=== PATIENT | female | born 1995 | race Caucasian/White ===

== ENCOUNTER → 2022-09-27 | Outpatient (CLI) | payer MEDICAID, SELFPAY ==
[2022-09-27 12:47] LABS: Platelet Count 355 K/mm3 (150-450); RET-HE 33.7 pg (30-35); Reticulocyte Count 1.09 % (0.5-1.5)
[2022-09-27 13:09] LABS: CRP < 2.90 mg/L (0.0-3.0); Ferritin 7 ng/mL (8-252); Iron 119 ug/dL (50-170); Iron Binding Capacity,Total 491 ug/dL (250-450); LDH 133 U/L (84-246); PERCENT IRON SATURATION 24.2 % (15.0-55.0)
[2022-09-27 13:16] LABS: Erythrocyte Sedimentation Rate 29 mm/hr (0-30)
[2022-09-28 13:07] LABS: Anti-Centromere B Ab <0.2 AI (0.0-0.9); Anti-Chromatin <0.2 AI (0.0-0.9); Anti-Jo <0.2 AI (0.0-0.9); Anti-Scleroderma-70 AB <0.2 AI (0.0-0.9); RNP Ab 0.2 AI (0.0-0.9); SJOGREN'S Anti-SS-A test < 0.2 AI (0.0-0.9); SJOGREN'S Anti-SS-B test < 0.2 AI (0.0-0.9); Smith Ab <0.2 AI (0.0-0.9)
[2022-09-28 15:08] LABS: Endomysial Antibody IgA Negative (Negative)
[2022-09-29 10:18] LABS: Anti-dsDNA Ab <1 IU/mL (0-9)
[2022-09-29 10:47] LABS: Immunoglobulin A 157 mg/dL (87-352); t-Transglutaminase IgA <2 U/mL (0-3)
[2022-10-01 00:06] LABS: Cytoplasmic Ab (C-ANCA) <1:20 titer (Neg:<1:20); Immunoglobulin A 145 mg/dL (87-352); Immunoglobulin E 186 IU/mL (6-495); Immunoglobulin G 1358 mg/dL (586-1602)
[2022-10-01 13:46] LABS: Immunoglobulin M 129 mg/dL (26-217); Perinuclear Ab (P-ANCA) <1:20 titer (Neg:<1:20)
== END | disposition home or self-care (01) ==
PROVIDERS: PCP Family Medicine; Referring Provider Internal Medicine Gastroenterology; Visit Provider Internal Medicine Gastroenterology
DX: D64.9 Anemia, unspecified (principal)
CPT/HCPCS: 36415; 82728; 82784; 82785; 83516; 83540; 83550; 83615; 85045; 85652; 86140; 86225; 86235; 86255; 86256

== ENCOUNTER 2023-01-10 05:52 | Day surgery (SDC) | payer MEDICAID, SELFPAY ==
[2023-01-10] MEDS: Lactated Ringers 1,000 ML 15 ML IV (06:36)
[2023-01-10 06:37] VITALS: BP 127/77; PULSE 93; RESP 18; TEMP 37; O2SAT 100; BMI 20.5
--- NOTE | 2023-01-10 06:49 | PCM.HP.BLA ---
History and Physical Date of Admission: 01/10/23 26 F who presents to the office today for initial consult. Pinky established with this clinic 09.27.22 with referral from PCP. Presented to [facility] ED with diarrhea and abdominal pain/cramping. Biochemical workup, stool testing and imaging performed and she was discharged with Augmentin for UTI and proctocolitis. ? Biochemical workup CBC (RBC L3.87), CMP, lactate, lipase, HcG without pertinent abnormality. Stool testing C.Difficile WNL ?CT abd/pel 06.10.22 noting moderate sigmoid/rectal wall thickening; slight left urothelial thickening, UTI; prominent uterine fundus, pelvic US. ? Pt feeling okay after ED visit. No other episodes of diarrhea or blood in stool. Does not have any abdominal pain, gas or bloating. Bowel movements are usually normal. Sometimes gets diarrhea if stressed. Reports having alot of constipation when she was younger. Having to get enemas on a regular basis. Has a history of anemia with previous iron infusions. No determined cause. 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 ? ? ROS Const Constitutional: No fatigue ENT ENT: No difficulty swallowing Gastro GI: Positive for abdominal pain, constipation and diarrhea; No belching, bloating, change in bowel habits, change in stool character, coffee ground emesis, cramping, heartburn, difficulty swallowing, feeling full early, excessive flatus, incontinent of stools, Vomiting blood/hematemesis, Blood in stool, loose stools, Black,tarry stools, nausea/dyspepsia, pain with swallowing, vomiting or other Musc Musculoskeletal: No joint pain Skin Skin: No yellowing of the eye or itchy eyes Psych Psychiatric: Positive for anxiety, Positive for depression and Positive for paranoia Endo Endocrine: No fatigue Aller/Imm Allergy/Immunologic: No itchy eyes Robert/Lymp Hematologic/Lymphatic: No easy bleeding or easy bruising Exam Const General: cooperative and comfortable Nutritional Appearance: average body habitus and well nourished [facility] Head: normal to inspection Ears: hearing grossly normal bilaterally Nose: external nose normal Face and sinus: normal facial exam Mouth: oral mucosae normal Throat: posterior oropharynx normal Eyes General: appearance normal, both eyes and all related structures Neck Neck: normal visual inspection Chest Chest palpation & inspection: normal inspection of the chest and normal palpation of entire chest wall Resp Effort & Inspection: normal respiratory effort Auscultation: Bilateral: Clear to Auscultation Cardio Palpation: normal PMI Rate: regular rate Rhythm: regular rhythm GI Inspection: normal to inspection Auscultation: normal bowel sounds Percussion: normal to percussion Palpation: no hepatosplenomegaly Skin General: no rashes or lesions noted Neuro General: patient alert Extrem General: normal to inspection Psych Affect: normal affect Quality Reporting Tobacco Screening ([facility]) Smoking Status: Never smoker Assessment and Plan Assessment and Plan (1) Anemia: ?Status:?Acute ?Plan: Differential diagnosis: Iron deficiency anemia celiac disease, metromenorrhagia, less likely autoimmune hemolysis, IgA deficient.? We will repeat her iron studies along with LDH, ferritin, TIBC, reticulocyte count.? We will also perform an MARLYS comprehensive profile, ANCA profile and serum immunoglobulins.? We will also do please celiac disease profile. ? ? ? Orders: Orders CRP Today D64.9 - Anemia, unspecified ? Ferritin Today D64.9 - Anemia, unspecified ? Iron+Iron Binding Capacity Today D64.9 - Anemia, unspecified ? LDH Today D64.9 - Anemia, unspecified ? Retic Panel Count Today D64.9 - Anemia, unspecified ? Erythrocyte Sed Rate Today D64.9 - Anemia, unspecified ? MARLYS Comprehensive Panel Today D64.9 - Anemia, unspecified ? ANCA Today D64.9 - Anemia, unspecified ? Celiac Disease Profile Today D64.9 - Anemia, unspecified ? Immunoglobulin A Today D64.9 - Anemia, unspecified ? Immunoglobulin E Today D64.9 - Anemia, unspecified ? Immunoglobulin G Today D64.9 - Anemia, unspecified ? Immunoglobulin M Today D64.9 - Anemia, unspecified ? I have examined the patient and the H&P has been reviewed. There are no clinical changes since date of exam.
[2023-01-10 06:51] LABS: Internal QC Validated? YES +Cl - CLEAR BKGD; Pregnancy, Serum, hCG Quali. NEGATIVE Negative
--- NOTE | 2023-01-10 07:00 | COLBX_PTH ---
PATIENT: NORA MIGUEL LOC: EN U#:[id number] AGE/SX: 27/F ROOM: RE01/10/[address]: Dr. Yogesh Rodriguez DO : 1995 BED: DIS: 01/10/2023 SPEC #: [id number] RECD: 01/10/23 09:21 STATUS: JAMEL REJose #: [id number] CHELSI: 01/10/23 07:[address]: Yogesh Rodriguez DEPT: SURGICAL PATHOLOGY RECD BY: Dinesh Jaimes ENTERED: 01/10/23 11:32 SP TYPE: COLON BX WOODY DR: Dr. Harjit Carmona MD Tissues: A - Duodenum, NOS B - Ileum, NOS C - Rectum, NOS Procedures: Surgery Specimen Level IV HEADER OPERATION: Colonoscopy, EGD ([facility] [place]), biopsy PRE-OP DIAGNOSIS: Anemia TISSUE SUBMITTED: A ? Duodenal biopsy, B ? Terminal ileum biopsy, C ? Rectal biopsy MICROSCOPIC DIAGNOSIS A. Duodenum, biopsy: Mild nonspecific chronic inflammation. B. Terminal ileum, biopsy: No pathologic change. See comment. C. Rectum, biopsy: No pathologic change. AM:stef 01/11/2023 COMMENT B. Benign appearing lymphoid aggregates are present. MICROSCOPIC DESCRIPTION Slides are reviewed. GROSS DESCRIPTION A - Received in fixative is one container labeled with the patient's name and designated duodenal biopsy. The specimen consists of multiple irregular fragments of light arboleda soft tissue that in aggregate measure 1.0 x 0.5 x 0.1 cm. The specimen is totally submitted in one cassette. B - Received in fixative is one container labeled with the patient's name and designated terminal ileum biopsy. The specimen consists of two irregular fragments of light arboleda soft tissue that in aggregate measure 0.5 x 0.5 x 0.1 cm. The specimen is totally submitted in one cassette. C - Received in fixative is one container labeled with the patient's name and designated rectal biopsy. The specimen consists of multiple irregular fragments of light arboleda soft tissue that in aggregate measure 1.0 x 0.5 x 0.1 cm. The specimen is totally submitted in one cassette. / AM:stef 01/10/2023 TC:5 CPT: 37808 x3
[2023-01-10 07:35] VITALS: BP 115/71; BP 127/77; PULSE 73; RESP 16; TEMP 37; O2SAT 100
--- NOTE | 2023-01-10 07:39 | OP.EGD_ITS ---
Patient Name: Pinky Bejarano Procedure Date: 01/10/2023 6:54 AM Date of : 1995 Age: 27 Procedure: Upper GI endoscopy Indications: Iron deficiency anemia Providers: Yogesh Rodriguez DO Referring MD: Yogesh Rodriguez DO Medicines: Monitored Anesthesia Care Patient Profile: This is a 27 year old female. Refer to note in patient chart for documentation of history and physical. Patient has symptoms of chronic abdominal cramping and chronic nausea. Complications: No immediate complications. Procedure: Pre-Anesthesia Assessment: - Prior to the procedure, a History and Physical was performed, and patient medications and allergies were reviewed. The risks and benefits of the procedure and the sedation options and risks were discussed with the patient. All questions were answered and informed consent was obtained. Patient identification and proposed procedure were verified in the pre-procedure area. Mental Status Examination: normal. Airway Examination: normal oropharyngeal airway and neck mobility. Respiratory Examination: clear to auscultation. Prophylactic Antibiotics: The patient does not require prophylactic antibiotics. Prior Anticoagulants: The patient has taken no previous anticoagulant or antiplatelet agents. After reviewing the risks and benefits, the patient was deemed in satisfactory condition to undergo the procedure. The anesthesia plan was to use monitored anesthesia care (MAC). Immediately prior to administration of medications, the patient was re-assessed for adequacy to receive sedatives. The heart rate, respiratory rate, oxygen saturations, blood pressure, adequacy of pulmonary ventilation, and response to care were monitored throughout the procedure. The physical status of the patient was re-assessed after the procedure. After obtaining informed consent, the endoscope was passed under direct vision. Throughout the procedure, the patient's blood pressure, pulse, and oxygen saturations were monitored continuously. The Colonoscope was introduced through the mouth, and advanced to the second part of duodenum. The upper GI endoscopy was accomplished without difficulty. The patient tolerated the procedure well. Scope In: 7:03:16 AM Scope Out: 7:07:39 AM Total Procedure Duration Time 0 hours 4 minutes 23 seconds Findings: The examined esophagus was normal. The entire examined stomach was normal. The cardia and gastric fundus were normal on retroflexion. Patchy mild inflammation characterized by granularity was found in the duodenal bulb, in the first portion of the duodenum and in the second portion of the duodenum. Biopsies for histology were taken with a cold forceps for evaluation of celiac disease. Verification of patient identification for the specimen was done. Estimated blood loss was minimal. Impression: - Normal esophagus. - Normal stomach. - Chronic duodenitis. Biopsied. Recommendation: - Discharge patient to home. - Resume previous diet. - Continue present medications. - Await pathology results. Procedure Code(s): --- Professional --- 28249, Esophagogastroduodenoscopy, flexible, transoral; with biopsy, single or multiple CPT copyright 2017 [employer]. All rights reserved. The codes documented in this report are preliminary and upon certified procedural coder review may be revised to meet current compliance requirements. Yogesh Rodriguez DO 01/10/2023 7:38:27 AM This report has been signed electronically. Number of Addenda: 0 Note Initiated On: 01/10/2023 6:54 AM
--- NOTE | 2023-01-10 07:39 | OP.CCLET_ITS ---
01/10/2023 Harjit Carmona Md Re : Upper GI endoscopy procedure for Pinky Bejarano Shamika Carmona This procedure was performed on Tuesday, January 10, 2023. My impressions and recommendations are as follows: Impressions : - Normal esophagus. - Normal stomach. - Chronic duodenitis. Biopsied. Recommendations : - Discharge patient to home. - Resume previous diet. - Continue present medications. - Await pathology results. My findings are described in the full procedure note, which is enclosed. If I can be of further assistance, please feel free to contact me at . Sincerely, Yogesh Rodriguez, 01/10/2023 7:38:27 AM This report has been signed electronically.
[2023-01-10 07:40] VITALS: BP 101/64; BP 127/77; PULSE 70; RESP 16; O2SAT 100
--- NOTE | 2023-01-10 07:42 | OP.CCLET_ITS ---
01/10/2023 Harjit Carmona Md Re : Colonoscopy procedure for Pinky Bejarano Osirisr Kristine This procedure was performed on Tuesday, January 10, 2023. My impressions and recommendations are as follows: Impressions : - Decreased sphincter tone found on digital rectal exam. - Congested mucosa in the rectum. Biopsied. - The examined portion of the ileum was normal. Biopsied. Recommendations : - Discharge patient to home. - Resume previous diet. - Continue present medications. - Await pathology results. - Repeat colonoscopy is recommended. The colonoscopy date will be determined after pathology results from today's exam become available for review. My findings are described in the full procedure note, which is enclosed. If I can be of further assistance, please feel free to contact me at . Sincerely, Yogesh Rodriguez, 01/10/2023 7:42:05 AM This report has been signed electronically.
--- NOTE | 2023-01-10 07:42 | OP.COLON_ITS ---
Patient Name: Pinky Bejarano Procedure Date: 01/10/2023 7:08 AM Date of : 1995 Age: 27 Procedure: Colonoscopy Indications: Iron deficiency anemia, Abnormal CT of the GI tract Providers: Yogesh Rodriguez DO Referring MD: Yogesh Rodriguez DO Medicines: Monitored Anesthesia Care Patient Profile: This is a 27 year old female. Refer to note in patient chart for documentation of history and physical. Patient has symptoms of chronic abdominal cramping and chronic nausea. Last Colonoscopy: none. The patient's first colonoscopy is today. Complications: No immediate complications. Procedure: Pre-Anesthesia Assessment: - Prior to the procedure, a History and Physical was performed, and patient medications and allergies were reviewed. The risks and benefits of the procedure and the sedation options and risks were discussed with the patient. All questions were answered and informed consent was obtained. Patient identification and proposed procedure were verified in the pre-procedure area. Mental Status Examination: normal. Airway Examination: normal oropharyngeal airway and neck mobility. Respiratory Examination: clear to auscultation. Prophylactic Antibiotics: The patient does not require prophylactic antibiotics. Prior Anticoagulants: The patient has taken no previous anticoagulant or antiplatelet agents. After reviewing the risks and benefits, the patient was deemed in satisfactory condition to undergo the procedure. The anesthesia plan was to use monitored anesthesia care (MAC). Immediately prior to administration of medications, the patient was re-assessed for adequacy to receive sedatives. The heart rate, respiratory rate, oxygen saturations, blood pressure, adequacy of pulmonary ventilation, and response to care were monitored throughout the procedure. The physical status of the patient was re-assessed after the procedure. After I obtained informed consent, the scope was passed under direct vision. Throughout the procedure, the patient's blood pressure, pulse, and oxygen saturations were monitored continuously. The Colonoscope was introduced through the anus and advanced to the terminal ileum. The colonoscopy was performed without difficulty. The patient tolerated the procedure well. The quality of the bowel preparation was good. Scope In: 7:09:31 AM Scope Withdrawal Time 0 hours 12 minutes 47 seconds Scope Out: 7:26:12 AM Total Procedure Duration Time 0 hours 16 minutes 41 seconds Findings: The digital rectal exam findings include decreased sphincter tone. An area of mildly congested mucosa was found in the rectum. Biopsies were taken with a cold forceps for histology. Verification of patient identification for the specimen was done. Estimated blood loss was minimal. The exam was otherwise normal throughout the examined colon. The terminal ileum appeared normal. Biopsies were taken with a cold forceps for histology. Verification of patient identification for the specimen was done. Estimated blood loss was minimal. Retroflexion in the rectum was not performed due to anatomy. Impression: - Decreased sphincter tone found on digital rectal exam. - Congested mucosa in the rectum. Biopsied. - The examined portion of the ileum was normal. Biopsied. Recommendation: - Discharge patient to home. - Resume previous diet. - Continue present medications. - Await pathology results. - Repeat colonoscopy is recommended. The colonoscopy date will be determined after pathology results from today's exam become available for review. Procedure Code(s): --- Professional --- 68112, Colonoscopy, flexible; with biopsy, single or multiple CPT copyright 2017 [employer]. All rights reserved. The codes documented in this report are preliminary and upon armor reconnaissance specialist review may be revised to meet current compliance requirements. Yogesh Rodriguez DO 01/10/2023 7:42:05 AM This report has been signed electronically. Number of Addenda: 0 Note Initiated On: 01/10/2023 7:08 AM
[2023-01-10 07:45] VITALS: BP 105/71; BP 127/77; PULSE 72; RESP 16; O2SAT 100
[2023-01-10 07:50] VITALS: BP 112/73; BP 127/77; PULSE 74; RESP 16; TEMP 36.3; O2SAT 100
[2023-01-10 08:05] VITALS: BP 127/77
== END 2023-01-10 08:13 | disposition home or self-care (01) ==
LOC: EN 05:53 → AC 05:54
PROVIDERS: Anesthesiology; PCP Family Medicine; Referring Provider Family Medicine; Visit Provider Internal Medicine Gastroenterology
PROC: 0DJD8ZZ Inspection of Lower Intestinal Tract, Via Natural or Artificial Opening Endoscopic (ICD-10-PCS; CPT 45378; principal; 2023-01-10 06:55)
DX: K29.80 Duodenitis without bleeding (principal); D50.9 Iron deficiency anemia, unspecified; K21.9 Gastro-esophageal reflux disease without esophagitis; Z79.899 Other long term (current) drug therapy
CPT/HCPCS: 45380; 43239; 84703; 88305; J7120; J2405